=== PATIENT | female | born 1945 | race Caucasian/White ===

== ENCOUNTER → 2016-07-23 | Outpatient (CLI) | payer BC ==
--- NOTE | 2016-07-23 15:02 | MAMMOGRAPHY REPORT ---
BILATERAL DIGITAL SCREENING MAMMOGRAM TOMOSYNTHESIS WITH CAD: 07/23/2016 CLINICAL HISTORY: Routine screening. Patient has no complaints. TECHNIQUE: Breast tomosynthesis in addition to standard 2D mammography was performed. Current study was also evaluated with a Computer Aided Detection (CAD) system. COMPARISON: Comparison is made to exams dated: 07/23/2015 mammogram, 05/15/2013 mammogram, 05/21/2014 ma mmogram, 05/13/2012 mammogram, 05/04/2011 mammogram, and 05/01/2010 mammogram - [facility]. BREAST COMPOSITION: The tissue of both breasts is heterogeneously dense, which may obscure small ma sses. FINDINGS: No suspicious masses, calcifications, or areas of architectural distortion are noted in e ither breast. There has been no significant interval change compared to prior exams. IMPRESSION: ACR BI-RADS CATEGORY 1: NEGATIVE There is no mammographic evidence of malignancy. A 1 year screening mammogram is recommended. The p atient will receive written notification of the results. Approximately 10% of breast cancers are not detected with mammography. A negative mammographic repor t should not delay biopsy if a clinically suggestive mass is present. Key Parisi M.D. /:07/23/2016 12:02:43 Packing Machine Tender: Meg MCDANIELSR, M, [facility] letter sent: Normal 1/2 BI-RADS Code: ACR BI-RADS Category 1: Negative
== END ==
LOC: C.MAMM 10:39
PROVIDERS: ATTEND Obstetrics & Gynecology
DX: Z12.31 Encounter for screening mammogram for malignant neoplasm of breast (principal)

== ENCOUNTER → 2017-03-02 | Outpatient (CLI) | payer BC ==
--- NOTE | 2017-03-02 10:58 | DIAGNOSTIC IMAGING REPORT ---
ULTRASOUND OF THE THYROID GLAND CLINICAL HISTORY: Thyromegaly. COMPARISON STUDY: No priors. TECHNIQUE: Real-time, grayscale, and color flow sonography of the thyroid gland is performed utilizing a high-frequency linear transducer. Images are reviewed in the transverse and longitudinal planes. FINDINGS: Right lobe: The right lobe of the thyroid gland is top normal in size and heterogeneous in echotexture, measuring 5.0 x 2.0 x 2.6 cm. A large and predominantly cystic nodule in the upper pole measures 2.8 x 1.5 x 2.1 cm. Left lobe: The left lobe of the thyroid gland is normal in size and heterogeneous in echotexture, measuring 3.5 x 1.4 x 1.2 cm. A cystic nodule in the lower pole measures 0.6 x 0.4 x 0.6 cm. A hypoechoic nodule in the upper pole measures 0.5 x 0.3 x 0.4 cm. A 4 mm colloid cyst is noted in the midpole. Isthmus: The thyroid isthmus is normal in appearance and measures 0.2 cm in AP diameter. IMPRESSION: 1. The thyroid gland is normal in size and heterogeneous in echotexture. 2. There is a 2.8 cm dominant and predominantly cystic nodule in the right lobe. Fine-needle aspiration of this nodule is recommended based on size criteria. 3. Additional subcentimeter nodules are of low suspicion. Electronically signed by: Brett Miller M.D. 03/02/2017 10:57 AM Dictated Date/Time: 03/02/2017 10:54 AM
== END | disposition home or self-care (01) ==
LOC: C.ULTRBC 09:55
PROVIDERS: ATTEND Family Medicine
DX: E01.0 Iodine-deficiency related diffuse (endemic) goiter (principal)

== ENCOUNTER → 2017-07-29 | Outpatient (CLI) | payer BC ==
--- NOTE | 2017-07-29 14:54 | MAMMOGRAPHY REPORT ---
BILATERAL DIGITAL SCREENING MAMMOGRAM TOMOSYNTHESIS WITH CAD: 07/29/2017 CLINICAL HISTORY: Routine screening. Patient has no complaints. TECHNIQUE: Breast tomosynthesis in addition to standard 2D mammography was performed. Current study was also evaluated with a Computer Aided Detection (CAD) system. COMPARISON: Comparison is made to exams dated: 07/23/2015 mammogram, 07/23/2016 mammogram, 05/21/2014 ma mmogram, 05/13/2012 mammogram, 05/04/2011 mammogram, and 05/01/2010 mammogram - [facility] ter. BREAST COMPOSITION: The tissue of both breasts is heterogeneously dense, which may obscure small mas ses. FINDINGS: No suspicious masses, calcifications, or areas of architectural distortion are noted in ei ther breast. There has been no significant interval change compared to prior exams. IMPRESSION: ACR BI-RADS CATEGORY 1: NEGATIVE There is no mammographic evidence of malignancy. A 1 year screening mammogram is recommended. The pa tient will receive written notification of the results. Approximately 10% of breast cancers are not detected with mammography. A negative mammographic report should not delay biopsy if a clinically suggestive mass is present. Key Parisi M.D. ah/:07/29/2017 11:46:22 [employer] Machine Operator: Swati MCDANIELS(R)(M), [facility] letter sent: Normal 1/2 BI-RADS Code: ACR BI-RADS Category 1: Negative
== END | disposition home or self-care (01) ==
LOC: C.MAMM 10:06
PROVIDERS: ATTEND Family Medicine
DX: Z12.31 Encounter for screening mammogram for malignant neoplasm of breast (principal)